=== PATIENT | female | born 1985 | race Caucasian/White ===

== ENCOUNTER 2024-03-22 23:30 | Observation (INO) | payer OTHER, SELFPAY ==
[2024-03-22 18:02] VITALS: BP 142/91
--- NOTE | 2024-03-22 18:57 | ED.GENMED ---
History of Present Illness
<Adam Torres Jr., PA-C - Last Filed: 03/24/24 12:15>
General
Chief Complaint: Headache
Source: patient
Exam Limitations: none
Time Seen by Provider: 03/22/24 18:22
Nursing documentation reviewed up to this point in time: agreed with
Travel History
Have you had any contact with someone who has COVID-19?: No
Do you have any symptoms of coronavirus? Fever > 100 degrees, chills, cough, shortness of breath, sore throat, loss of taste or smell, muscle aches, or headache?: No
History of Present Illness
History of Present Illness:
38-year-old female without chronic medical conditions presenting to the emergency department today with concerns of severe headache started yesterday seem to be abrupt and start within a few seconds yesterday while she was walking has had ongoing
headaches since took Motrin Tylenol earlier today without relief. Denies chronic headaches did have migraines with . A few days ago had some mild upper respiratory symptoms. Additionally she claims that she has had some ongoing abdominal
pain and had a CT scan at [facility] a few days ago that showed inguinal lymph nodes and hernia. Denies specific chest pain numbness weakness changes in vision. No recent trauma. Not on blood thinners.
Review of Systems
<Adam Torres Jr., PA-C - Last Filed: 03/24/24 12:15>
Review of Systems
Allergies reviewed?: Yes
All Other Systems: ROS reviewed and negative except as documented in HPI and ROS
Phy Exam
<Adam Torres Jr., PA-C - Last Filed: 03/24/24 12:15>
Physical Exam
Physical Exam:
GENERAL: Alert , in no apparent distress
EYE: pupils equal and reactive
NECK: Supple, no significant adenopathy.
ENT: o/p clr, mmm.
CARDIAC: Regular rate and rhythm .
LUNGS: Clear breath sounds bilaterally, no acute respiratory distress, no wheezes/rales/rhonchi
ABDOMEN: Soft, without focal tenderness, no r/g, no cvat
NEUROLOGICAL: Alert and oriented, no focal neuro deficits
SKIN: Warm and dry, skin intact. 5 out of 5 and 5 upper and lower extremity strength normal sensation with palpating bilaterally normal finger-nose intervention no pronator
MUSCULOSKELETAL: No edema, well perfused.
PSYCH: Normal and appropriate interaction.
Course
<Adam Torres Jr., PA-C - Last Filed: 03/24/24 12:15>
Orders/Labs/Results
Orders:
Orders
03/22/24 18:37
0.9% Sodium Chloride 1000 ml [Nss] 1,000 ml IV BOLUS
Diphenhydramine [Benadryl] 25 mg IV NOW STA
Metoclopramide [Reglan] 10 mg IV NOW STA
03/22/24 18:39
Electrocardiogram (*1) Stat
Reason for Study: Other
Other Reason for Exam: Headache
CT Head W/o Iv Contrast Urgent
Comment:
Reason For Exam: severe WONG
EKG- Treatment ONCE
03/22/24 18:45
Test Result ONCE
03/22/24 19:12
Complete Blood Count/With Diff Urgent
Comprehensive Metabolic Panel Urgent
Erythrocyte Sed Rate Urgent
HCG, Serum Qualitative Screen Urgent
Magnesium Urgent
Comment: ADD ON
Influenza A+B Rapid Molecular Urgent
MARISA Source: Nasal Swab
Specimen Description:
03/22/24 19:41
CT Head & Neck Angio W/wo IV Urgent
Reason For Exam: severe WONG
03/22/24 20:43
Dexamethasone Sod Phosphate [Decadron] 10 mg IV NOW STA
03/22/24 21:08
COVID-19 Antigen Urgent
Source: Nasal Swab
03/22/24 21:40
HYDROmorphone [Dilaudid] 1 mg IV NOW STA
03/22/24 23:00
Flush (0.9% Sodium Chloride) [Flush (Nss)] See Dose Instructions IV PER PROTOCOL
03/22/24 23:10
Ketorolac [Toradol] 30 mg IV NOW STA
03/22/24 23:11
Admit/Transfer Patient As Directed
Co-Sign Provider:
Level of Care: Observation services
Assign to:: Medical/Surgical
Physician / Group: Reji
Diagnosis: Intractable Headache
03/22/24 23:12
Code Status As Directed
Resuscitation Status: Full Code
03/22/24 23:16
Add On- LAB Urgent
Tests Added?: magnesium
Sumatriptan Succinate [Imitrex] 50 mg PO ONCE PRN
03/22/24 23:18
Caffeine Citrate [Caffeine Citrate Oral Solution] 100 mg PO NOW STA
Magnesium Sulfate 1 G/D5w [Magnesium Sulfate] 1 gm in 100 ml IV NOW
03/22/24 23:20
Oxygen Therapy [O2 Therapy] [RESP] Routine
Titrate/Wean O2 to maintain O2 sat greater than (%): 100
Special Instructions: Place on 2L NC for headache
03/23/24 00:28
0.9% Sodium Chloride 1000 ml [Nss] 1,000 ml IV 60 mls/hr
Acetaminophen [Tylenol] 650 mg PO Q4HPRN PRN
Ketorolac [Toradol] 30 mg IV Q8HPRN PRN
Ondansetron Injectable [Zofran] 4 mg IV Q6HPRN PRN
03/23/24 00:28
Activity As Directed
Activity Level: Out of Bed-Early Mobility
With Assistance
I&O [Intake/ Output] As Directed
Frequency: q12h
Pneumatic Compression Sleeves As Directed
Type: Knee high
Vital Signs As Directed
Frequency: Per unit guidelines
DX Deep Vein Thrombosis Video Routine
03/23/24 Breakfast
Regular
At Your Request: Full Participation
03/23/24 07:06
Complete Blood Count/No Diff IN AM
Comprehensive Metabolic Panel IN AM
Magnesium IN AM
Abnormal Lab Results
03/22/24
19:12
Absolute Monos (auto) 0.9 H 10^3/uL
(0.1-0.6)
Monocytes % 15.4 H %
(1.7-9.3)
ESR 25 H mm/hour
(0-20)
AST 39 H U/L
(14-36)
ALT 67 H U/L
(0-35)
03/22/24 19:12
03/22/24 19:12
Vital Signs
Initial and Last Documented VS:
Initial Vital Signs
Temp Pulse Resp BP Pulse Ox
98.7 F 83 18 142/91 100
03/22/24 18:02 03/22/24 18:02 03/22/24 18:02 03/22/24 18:02 03/22/24 18:02
Last Documented Vital Signs
Temp Pulse Resp BP Pulse Ox
97.9 F 61 18 110/63 97
03/23/24 15:00 03/23/24 15:00 03/23/24 15:00 03/23/24 15:00 03/23/24 15:00
<Maegan Rodriguez MD - Last Filed: 03/24/24 15:38>
Orders/Labs/Results
Orders:
Orders
03/22/24 18:37
0.9% Sodium Chloride 1000 ml [Nss] 1,000 ml IV BOLUS
Diphenhydramine [Benadryl] 25 mg IV NOW STA
Metoclopramide [Reglan] 10 mg IV NOW STA
03/22/24 18:39
Electrocardiogram (*1) Stat
Reason for Study: Other
Other Reason for Exam: Headache
CT Head W/o Iv Contrast Urgent
Comment:
Reason For Exam: severe WONG
EKG- Treatment ONCE
03/22/24 18:45
Test Result ONCE
03/22/24 19:12
Complete Blood Count/With Diff Urgent
Comprehensive Metabolic Panel Urgent
Erythrocyte Sed Rate Urgent
HCG, Serum Qualitative Screen Urgent
Magnesium Urgent
Comment: ADD ON
Influenza A+B Rapid Molecular Urgent
MARISA Source: Nasal Swab
Specimen Description:
03/22/24 19:41
CT Head & Neck Angio W/wo IV Urgent
Reason For Exam: severe WONG
03/22/24 20:43
Dexamethasone Sod Phosphate [Decadron] 10 mg IV NOW STA
03/22/24 21:08
COVID-19 Antigen Urgent
Source: Nasal Swab
03/22/24 21:40
HYDROmorphone [Dilaudid] 1 mg IV NOW STA
03/22/24 23:00
Flush (0.9% Sodium Chloride) [Flush (Nss)] See Dose Instructions IV PER PROTOCOL
03/22/24 23:10
Ketorolac [Toradol] 30 mg IV NOW STA
03/22/24 23:11
Admit/Transfer Patient As Directed
Co-Sign Provider:
Level of Care: Observation services
Assign to:: Medical/Surgical
Physician / Group: Targino
Diagnosis: Intractable Headache
03/22/24 23:12
Code Status As Directed
Resuscitation Status: Full Code
03/22/24 23:16
Add On- LAB Urgent
Tests Added?: magnesium
Sumatriptan Succinate [Imitrex] 50 mg PO ONCE PRN
03/22/24 23:18
Caffeine Citrate [Caffeine Citrate Oral Solution] 100 mg PO NOW STA
Magnesium Sulfate 1 G/D5w [Magnesium Sulfate] 1 gm in 100 ml IV NOW
03/22/24 23:20
Oxygen Therapy [O2 Therapy] [RESP] Routine
Titrate/Wean O2 to maintain O2 sat greater than (%): 100
Special Instructions: Place on 2L NC for headache
03/23/24 00:28
0.9% Sodium Chloride 1000 ml [Nss] 1,000 ml IV 60 mls/hr
Acetaminophen [Tylenol] 650 mg PO Q4HPRN PRN
Ketorolac [Toradol] 30 mg IV Q8HPRN PRN
Ondansetron Injectable [Zofran] 4 mg IV Q6HPRN PRN
03/23/24 00:28
Activity As Directed
Activity Level: Out of Bed-Early Mobility
With Assistance
I&O [Intake/ Output] As Directed
Frequency: q12h
Pneumatic Compression Sleeves As Directed
Type: Knee high
Vital Signs As Directed
Frequency: Per unit guidelines
DX Deep Vein Thrombosis Video Routine
03/23/24 Breakfast
Regular
At Your Request: Full Participation
03/23/24 07:06
Complete Blood Count/No Diff IN AM
Comprehensive Metabolic Panel IN AM
Magnesium IN AM
Abnormal Lab Results
03/22/24
19:12
Absolute Monos (auto) 0.9 H 10^3/uL
(0.1-0.6)
Monocytes % 15.4 H %
(1.7-9.3)
ESR 25 H mm/hour
(0-20)
AST 39 H U/L
(14-36)
ALT 67 H U/L
(0-35)
03/22/24 19:12
03/22/24 19:12
Vital Signs
Initial and Last Documented VS:
Initial Vital Signs
Temp Pulse Resp BP Pulse Ox
98.7 F 83 18 142/91 100
03/22/24 18:02 03/22/24 18:02 03/22/24 18:02 03/22/24 18:02 03/22/24 18:02
Last Documented Vital Signs
Temp Pulse Resp BP Pulse Ox
97.9 F 61 18 110/63 97
03/23/24 15:00 03/23/24 15:00 03/23/24 15:00 03/23/24 15:00 03/23/24 15:00
<Adam Torres Jr., PA-C - Last Filed: 03/24/24 12:15>
MDM/Problems Addressed
MDM/Problems Addressed:
38-year-old female presenting to the emergency department with concerns of headache that she claims is worse than typical headaches. No diagnosed chronic headache illnesses but did have some migraines with . Symptom started yesterday while
she was walking and seem to reach maximal intensity over a few seconds. No vomiting no numbness weakness normal neurologic evaluation here normal vital signs afebrile no neck stiffness no fever. Concerning her description of symptoms plan for CT
CT angiogram for further assessment.
CT without evidence of acute abnormalities labs unremarkable
Vital signs remaining stable. Patient was given Reglan and Benadryl but claims to have very minimal of symptoms. She was then reassessed no neurologic symptoms no neck stiffness appears very comfortable on exam clinically does seem to be very
unlikely to be meningitis due to no fever no meningismus neurologic evaluation additionally subarachnoid very unlikely due to normal neuroexam no neck stiffness and no progression in 24-hour span. Plan to give additional headache medication and
reassess. Care transition to attending physician pending additional treatment.
<Adam Torres Jr., PA-C - Last Filed: 03/24/24 12:15>
*Critical Care Note
Total Time (30-74mins, 75-104mins- exclusive of procedures): Not Applicable
ED Attending Note
<Adam Torres Jr., PA-C - Last Filed: 03/24/24 12:15>
-
Portions of this chart may have been created with voice recognition software.� Occasional wrong word or��sound alike� substitutions may have occurred due to the inherent limitations of voice recognition software.
<Maegan Rodriguez MD - Last Filed: 03/24/24 15:38>
ED Attending Note
Patient seen and examined by attending physician: Yes
I performed the substantive portion of visit, reviewed & personally made and approve the management plan that is documented in note by myself or SASHA.: Yes
ED Attending Note:
38-year-old female who states that on Saturday evening she had episodes of fevers, chills, body aches, and chest discomfort that would come and go. The symptoms essentially resolved over the last 48 hours but then yesterday around 5 PM while getting
ready to get into the car she noted a frontal headache that is now diffuse. She is that it was very intense upon presentation, becoming maximal in about an hour. She rates it as a 9 out of 10 and states that it has been at this level since
yesterday. She did not come in before now because she thought it would go away. She took Tylenol Motrin at home without relief of symptoms. Sometimes pain will radiate to her neck, but nods her head yes and no easily, no photophobia or vomiting,
no change in vision. She notes that her children have had recent URI/flulike symptoms. Patient denies cough or shortness of breath. On exam, patient overall extremely well-appearing, no photophobia, neurologically intact, nods yes and no easily,
TMs clear bilaterally, oropharynx clear. nontoxic. Patient does not exhibit signs or symptoms to suggest encephalitis/meningitis. Highly doubt SAH given symptoms for at least 24 hours without meningismus/neurofindings and unremarkable CT CTA.
Remains neurologically stable here. Will continue to follow closely while helping to relieve her pain.
1044pm multiple reassessments. She began to report worsening pain, given dilaudid, pain now 7/10. No new sxs. Still no nuchal rigidity noted, generally nontoxic, no photophobia, etc. at bedside. Recommend admission, continued pain
management, observation, may need further nonemergent imaging (ex MR) in AM. Stephan text to hospitalist.
Discharge Plan
Departure
Patient Disposition: Admit
Date of Disposition: 03/22/24
Time of Disposition: 22:45
Presentation/result/management discussed w/ accepting MD/DO: Hospitalist
Condition: Fair
Discharge Problem:
Headache
Interventions
Interventions:
*Risk Screen - Suicide Last Done: 03/22/24 19:11
*General Assessment Last Done: 03/22/24 18:02
*Neglect/Abuse Screening Last Done: 03/22/24 19:11
ED- Fall Risk Assessment Last Done: 03/22/24 19:11
*ED COVID-19 Vaccine History Last Done: 03/23/24 01:03
*Nursing Disposition Last Done: 03/23/24 00:20
ED- Neurological Assessment Last Done: 03/22/24 19:11
Discharge Date and Time
Discharge Date/Time: 03/23/24 00:20
[2024-03-22] MEDS: BENADRYL 25 MG IV (19:12)
[2024-03-22] MEDS: REGLAN 10 MG IV (19:13)
[2024-03-22] MEDS: NSS 1000 IV (19:13)
[2024-03-22 19:23] LABS: % Basophils 0.7 % (0-2); % Eosinophils 1.6 % (0-6); % Immature Granulocytes 0.2 % (0-0.5); % Lymphocytes 26.3 % (20.5-51.1); % Monocytes 15.4 % (1.7-9.3); % Neutrophils 55.8 % (42.2-75.2); Absolute Eosinophils 0.1 10^3/uL (0-0.7); Absolute Lymphocytes 1.5 10^3/uL (1.2-3.4); Absolute Monocytes 0.9 10^3/uL (0.1-0.6); Absolute Neutrophils 3.1 10^3/uL (1.4-6.5); Hematocrit 38.1 % (37.0-47.0); Hemoglobin 12.6 g/dL (12.0-16.0); Mean Corp Hgb Conc. 33.1 g/dL (33.0-37.0); Mean Corpuscular Hgb 28.1 pg (27.0-31.0); Mean Corpuscular Volume 84.9 fL (81.0-99.0); Mean Platelet Volume 10.4 fL (7.4-10.4); Nucleated Red Blood Cells % 0 %; Platelet Count 272 10^3/uL (130-400); Red Blood Cell Count 4.49 10^6/uL (4.20-5.40); Red Cell Dist. Width 12.9 % (11.5-14.5); White Blood Cell Count 5.6 10^3/uL (4.8-10.8)
[2024-03-22 19:31] LABS: Erythrocyte Sed Rate 25 mm/hour (0-20)
[2024-03-22 19:34] LABS: HCG, Serum Qualitative Screen Negative
[2024-03-22 19:39] LABS: ALT (SGPT) 67 U/L (0-35); AST (SGOT) 39 U/L (14-36); Albumin 4.5 g/dl (3.5-5.0); Alkaline Phosphatase 61 U/L (38-126); Blood Urea Nitrogen 8 mg/dl (7-17); Calcium 9.7 mg/dl (8.4-10.2); Carbon Dioxide 27 mmol/L (22-30); Chloride 104 mmol/L (98-107); Glucose 90 mg/dl (70-99); Potassium 4.1 mmol/L (3.5-5.1); Sodium 139 mmol/L (135-145); Total Bilirubin 0.4 mg/dl (0.2-1.3); Total Protein 7.8 g/dl (6.3-8.2); eGFR > 60.00
[2024-03-22] MEDS: DECADRON 10 MG IV (21:06)
[2024-03-22 21:31] LABS: COVID-19 Antigen Negative (Negative)
[2024-03-22] MEDS: DILAUDID 1 MG IV (22:00)
--- NOTE | 2024-03-22 22:52 | HPS.HSE ---
Family Physician
-
Family Physician: Burton Diallo
Chief Complaint
-
Headache
History of Present Illness
This is a 38 year old female with no significant past medical history who presents today for acute onset headache x 1 day. She describes the pain as throbbing with episodes of sharp pain that radiates into her neck. She states at onset the pain was
910 and has been constant. She tried taking multiple doses of Tylenol throughout the day, and took 1 dose of 400 mg Ibuprofen at 8 am this morning without any relief. She has associated nausea but denies vomiting. She also admits to phonophobia and
muffled hearing in her right ear. She denies fever, changes in vision, photophobia, ear pain, abdominal pain, chest pain or palpitations. She denies any recent travel. She states one of her children is currently sick with sinusitis and her other
child has a sore throat, but denies any other sick contacts. She reports prior history of migraine with aura while but no migraine headaches since giving .
Medical History
Past Medical History
Past Medical History: Reports Other
Additional Past Medical History:
de Quervain's tenosynovitis
Past Surgical History: Reports Other
Additional Past Surgical History:
Left Shoulder Arthroscopy with Rotator Cuff Repair
Social History
Tobacco: Non-smoker
Alcohol: Occasional
Family History
Family History: Not pertinent
Allergies / Home Medications
Allergies reflects when Allergies were last updated in [employer].
Home Medications with original date entered in [employer]
Allergy/Medication List:
Medications on admission are unable to be verified or confirmed at this time.
Review of Systems
-
A 12 point ROS was completed and negative except as noted: Yes
Constitutional: Denies Fever
Respiratory: Denies Cough or Trouble Breathing
Cardiac: Denies Chest Pain or Palpitations
Neurological: Reports See HPI
Physical Exam
Vital Signs
Vital Signs
Temp Pulse Resp BP Pulse Ox
98.7 F 83 18 142/91 100
03/22/24 18:02 03/22/24 18:02 03/22/24 18:02 03/22/24 18:02 03/22/24 18:02
Physical Exam
General: Comfortable and Conversant
HEENT: Anicteric and Moist mucous membranes
Respiratory: Clear and Non Labored Respirations
Cardiac: S1/S2 and Regular Rhythm
GI: Soft and Non Tender
Rectal: Deferred by Provider
Musculoskeletal: No Clubbing, No Cyanosis and No Edema
Skin: Warm and Dry
Neuro: Awake, Alert, Oriented and Nonfocal/grossly intact
Psych: Calm
Laboratory Results
-
03/22/24 19:12
03/22/24 19:12
Laboratory Results
Total Bilirubin 0.4 mg/dl (0.2-1.3) 03/22/24 19:12
AST 39 U/L (14-36) H 03/22/24 19:12
ALT 67 U/L (0-35) H 03/22/24 19:12
Alkaline Phosphatase 61 U/L (38-126) 03/22/24 19:12
Data Reviewed
-
CT Scan: Report Reviewed by me
Lab Data: Labs Reviewed by me
Impression/Plan
-
Intractable Headache
-Give dose of Toradol, Magnesium and Caffeine Now
-If no improvement give dose of Imitrex later tonight
-Consider Neurology consult in AM if headache persists
DVT Proph: SCDs
Code Status: Full Code
--- NOTE | 2024-03-22 23:09 | W.PN.UPDATE ---
Update Note
Progress Note Update
Attending addendum.
Patient seen, examined, and interviewed independently.
38-year-old woman without chronic medical conditions presents with severe headache.Headache started yesterday with abrupt start. Motrin and Tylenol gave no relief. She Denies chronic headaches, but did have migraines with . She Denies
specific chest pain numbness weakness changes in vision. No recent trauma. Not on blood thinners. At worse it was 07/21. now 05/20. +photophobia and phonophobia.
Exam: Neuro grossly intact
aox3
[id number], no MRG
Lungs clear
abd soft, NT, ND
Brain CT shows No significant vascular occlusion, aneurysm or dissection.
A/P: intractable h/a, with migrainous features.
Try toradol
If that does not fix it, try imitrex
If that does not work, neuro consult.
Please see PA note for full details.
[2024-03-22] MEDS: MAGNESIUM SULFATE 100 IV (23:34)
[2024-03-22] MEDS: TORADOL 30 MG IV (23:35)
[2024-03-22 23:44] VITALS: BMI 28.1
[2024-03-23 00:36] VITALS: BP 114/67; BMI 18.4
[2024-03-23] MEDS: NSS 1000 IV (00:56)
[2024-03-23] MEDS: CAFFEINE CITRATE ORAL SOLUTION PO (00:56)
[2024-03-23] MEDS: IMITREX 50 MG PO (01:01)
[2024-03-23] MEDS: CAFFEINE CITRATE ORAL SOLUTION 100 MG PO (02:19)
[2024-03-23] MEDS: TORADOL 30 MG IV ×2 (03:24→11:50)
[2024-03-23] MEDS: TYLENOL 650 MG PO ×2 (04:46→09:35)
[2024-03-23 07:00] VITALS: BP 107/67
--- NOTE | 2024-03-23 07:37 | PTCARENOTE ---
Pt admitted to unit from ED. Pt pulled over into bed due to reporting 'lightheadedness' with ambulation. Pt reports 8/10 pain. Educated pt on plan of care. Pt requested 'pill pain medication' for pain 'doctor told me I would receive if the shot
didn't work.' Pain medication administered. Pt oriented to room with call hernandez in reach. Bedside commode at bedside. Plan of care ongoing.
[2024-03-23 08:00] LABS: Hematocrit 37.6 % (37.0-47.0); Hemoglobin 12.4 g/dL (12.0-16.0); Mean Corpuscular Volume 84.9 fL (81.0-99.0); Platelet Count 287 10^3/uL (130-400); Red Blood Cell Count 4.43 10^6/uL (4.20-5.40); Red Cell Dist. Width 12.8 % (11.5-14.5); White Blood Cell Count 5.1 10^3/uL (4.8-10.8)
[2024-03-23 08:24] LABS: ALT (SGPT) 48 U/L (0-35); AST (SGOT) 29 U/L (14-36); Albumin 4.3 g/dl (3.5-5.0); Alkaline Phosphatase 53 U/L (38-126); Blood Urea Nitrogen 6 mg/dl (7-17); Calcium 9.6 mg/dl (8.4-10.2); Carbon Dioxide 21 mmol/L (22-30); Chloride 108 mmol/L (98-107); Estimated Creatinine Clearance > 125 ml/min; Glucose 146 mg/dl (70-99); Magnesium 2.3 mg/dl (1.6-2.3); Potassium 4.6 mmol/L (3.5-5.1); Sodium 140 mmol/L (135-145); Total Bilirubin 0.5 mg/dl (0.2-1.3); Total Protein 7.5 g/dl (6.3-8.2); eGFR > 60.00
--- NOTE | 2024-03-23 09:30 | PTCARENOTE ---
Patient continues to c/o headache 04/20. Tylenol given. Patient states, 'For the last hour I have had numbness and tingling in both of my armsfrom my fingers to my elbows.' Physician made aware.
--- NOTE | 2024-03-23 10:41 | W.PN.HOSP.TC ---
Addendum entered and electronically signed by Chau Vela MD 03/23/24 15:00:
Total time spent on d/c = 31 min. This included today's physical exam, progress note, review of laboratory and diagnostic data, preparation of discharge documents and prescriptions, and discussions about the pt's hospital course and discharge plan
with the patient and other medical or surgical instrument maker involved in the patient's care.
Original Note:
Today's Communication/Plan
-
see bold
Assessment / Plan
Assessment / Plan
Pt seen and examined while SHAYY Rueda present at bedside:
Gen: NAD, AAOx3.
Eyes: EOMI, PERRLA, no scleral icterus.
Neck: supple.
CV: RRR, +S1/S2, no m/r/g.
Resp: CTAB, no rales, wheezes, or rhonchi.
Abd: +BS, soft, NT, ND
Skin: No rashes.
Neuro: CN 2-12 intact, non-focal.
Psych: Normal mood and affect.
CTA head/neck: No significant vascular occlusion, aneurysm or dissection.
CT brain: No acute intracranial abnormality noted.
Intractable headache:
-s/p Decadron 10mg IV, dilaudid, Toradol, Tylenol, Mg, caffeine, Imitrex, IVFs
-appreciate neurology. Will give Imitrex/compazine/Toradol now.
FULL
Anticipated Discharge: Within 24 hours
Subjective/Interval History
-
Date of Service: March 23, 2024
Still with headache and tingling in both arms from elbows distally.
Objective Data
-
Labs:
Laboratory Results
03/23/24
07:06
WBC 5.1
Hgb 12.4
Hct 37.6
Plt Count 287
Sodium 140
Potassium 4.6
Chloride 108 H
Carbon Dioxide 21 L
BUN 6 L
Creatinine 0.5 L
Glucose 146 H
Calcium 9.6
Total Bilirubin 0.5
AST 29
ALT 48 H
Alkaline Phosphatase 53
Vital Signs:
Vital Signs
Temp Pulse Resp BP Pulse Ox
97.9 F 71 14 107/67 98
03/23/24 07:00 03/23/24 07:00 03/23/24 07:00 03/23/24 07:00 03/23/24 07:00
--- NOTE | 2024-03-23 10:42 | CON.NEURO4 ---
Addendum entered and electronically signed by Fred Nicole MD 03/23/24 15:46:
I saw and evaluate the patient I reviewed the note by Suri Bennett agree to find the following comments:
38-year-old woman with a past medical history of migraines during presented to hospital with significant headache and mild photophobia after having sick contacts with her children and mild sore throat a couple days ago. She is also had
some hand paresthesia bilateral. No rashes or fevers no vomiting, no unilateral weakness or speech difficulty slurred speech or vision changes.
Neurologic examination is benign, no abnormalities
CTA of the head and neck no significant abnormalities no dissection or occlusions or aneurysm
Assessment: Migraine headache with some sensory aura with paresthesias in the hands bilaterally probably occurring due to recent URI and sick contact, no red flags and normal neurologic examination is reassuring.
Recommendations
-Reassured patient things look like they will improve and that she has normal neurologic exam with reassuring CTA
-Give 1 dose sumatriptan along with p.o. prochlorperazine 10 mg and 1 dose IV Toradol
-No indication for further imaging or hospital monitoring I encouraged rest at home I think things will get better over the course of a couple of days
Original Note:
Consultation - Neurology 4
-
CONSULTING PHYSICIAN: Regine Nicole MD
REFERRING PHYSICIAN: Hospitalists/Dr. Vela
DICTATED BY: TIFFANIE Hutton
DATE/TIME OF REQUEST: 03/23/24
DATE/TIME OF CONSULTATION: 03/23/24
Reason for Consultation: Intractable headache
History of Present Illness:
This is a 38-year-old left-handed female who has presented to the hospital on 03/22/24 with report of severe headache. Patient reports that her two young children have had viral illnesses in the past couple of weeks. Six days ago on 03/17/24 she
reports developing body aches and a sore throat. Three days later on 03/20/24 she developed chills. Two days ago on 03/21/24 she reports having mild chest aching with no associated cough, and then around 1700 she suddenly developed an 8/10 fontal
headache. Her headache progressed to a 10/10 yesterday (03/22/24) and was not improving with OTC Tylenol and Advil, prompting her to come to the ER for evaluation. CT head and CTA head/neck were obtained on arrival and are negative for any acute
abnormalities. Today (03/23/24), her headache is a 5/10. She denies photophobia but reports phonophobia and intermittent nausea, no vomiting. The headache starts across her entire forehead, and then she reports shooting pain across bitemporal areas,
down the back of her head, and down her neck. She reports eye strain left>right with looking side to side. Her head hurts more when she bends foreword but otherwise seems unaffected by position change. She reports associated tingling in bilateral
forearms from her elbows throughout all of her fingers, this started around 0400 this morning. She denies any vision changes, dizziness, speech/swallow difficulty, weakness, chest pain, palpitations, and shortness of breath.
She reports a history of migraine with aura during both of her pregnancies in 2021 and 2022. She would see a bright blob in one of her eyes and then later develop a headache. Her previous migraines have been less severe and shorter lasting. Her
last migraine was about one year ago. She denies drinking any caffeine. She reports sleeping well until she was hospitalized. She has a history of concussion from a snowboarding accident in 2015. She also reports having vertigo in Fall 2022 and she
started to see a chiropractor at that time. Her vertigo resolved. She still goes to the chiropractor every 2-3 weeks and has neck manipulation. She also had left shoulder surgery in September 2023 and developed Covid in the weeks following surgery.
She travels significantly for work and flew several times for a work trip in October 2023. She started having left calf pain and was found to have a DVT. She recently completed 5 months of Eliquis 5mg BID and aspirin 81mg daily in mid-February 2024.
Her last flight was one month ago. She reports having chronic lower back pain and RLE sciatica from a herniated disc and she gets acupuncture for this. She had the Flu in January 2024 and completed a Medrol dose pack about 1.5 weeks ago. Additionally,
she has been having abdominal discomfort and recently had a CT abdomen that demonstrated an umbilical hernia, enlarged mesenteric lymph nodes, and a lucent L3 vertebral body lesion. She is scheduled to have an outpatient MRI lumbar spine for
follow-up. She started using Qbrexza wipes one month ago for hyperhidrosis, initially they caused her to have dry eyes and lethargy but this resolved weeks ago. She is not using control. She started her menses today (03/23/24).
Past Medical History: Migraine with aura, umbilical hernia, R calf DVT 10/2023, miscarriage x1 at 7-8 weeks gestation, Covid 09/2023
Surgical History: Left shoulder arthroscopy with subacromial decompression/acromioplasty/RTC repair, nasal polypectomy
Family History: Reviewed and noncontributory.
Social History: One glass of wine every other day. Denies tobacco and illicit drug use. Denies caffeine.
Allergies: No known allergies.
Home Medications: See below.
Review of Symptoms:
Patient denies any fever, chest pain, shortness of breath, GI or symptoms.
�Per the HPI.�All systems are reviewed negative except above.
Physical Exam:
The patient is afebrile, abdomen is nondistended, breathing is unlabored, skin is warm and dry, no edema.
Neurologic Examination:
The patient is awake, alert and oriented x 3. She is able to follow commands and answer questions appropriately. There is no aphasia or dysarthria. On cranial nerve assessment, pupils are 3 mm bilateral, round and reactive to light and
accommodation. Visual tracey are full. Extraocular movements are intact. Facial sensations are intact and bilaterally symmetrical, there is no facial asymmetry. Hearing is intact bilaterally to normal conversation volume. Tongue palate and uvula are
midline. Sternocleidomastoid strengths are full bilaterally. Motor strengths are 5/5 bilateral upper and lower extremities on medical research [place] scale. There is no drift or involuntary movement noted. Deep tendon reflexes are 2+ bilateral
upper and lower extremities and Babinski is absent bilaterally. Sensations of touch, temperature and vibration are intact and bilaterally symmetrical. There was no extinction noted on double simultaneous stimulation. Coordination is intact by finger
to nose bilaterally.
Lab Results: See below.
Neuro Imaging:
1. CT Head 03/22/24: No acute intracranial abnormality noted.
2. CTA head/neck 03/22/24: No significant vascular occlusion, aneurysm or dissection.
Differentials for the patient's presentation include:
1. Intractable migraine with aura likely producing headache and bilateral upper extremity paresthesias.
2. Low concern for acute intracranial abnormality producing headache.
3. CTA negative for dissection and aneurysm.
Patient has the following risk factors for their symptoms: Hx migraine with aura, started menses today, recent virus, recent DVT
Recommendations:
-Provide sumatriptan 100mg PO x1 now for headache, may repeat dose again in 2 hours if needed.
-Provide prochlorperazine 10mg PO x1 now for headache.
-Provide Toradol 30mg IV x1 now for headache.
-Do not see a role for further neurological imaging at this time but will obtain eventual MRI brain w/ and w/o contrast as an outpatient to establish baseline.
-Sleep and hydration encouraged.
-Patient should follow-up with Neurology as an outpatient in about 4 weeks, may see the [employer]CHNICIAN or one of the physicians.
Discussed patient care with: Dr. Nicole, the patient
Vital Signs and Labs
-
Vital Signs and Labs:
Vital Signs
Temp Pulse Resp BP Pulse Ox
97.9 F 71 14 107/67 98
03/23/24 07:00 03/23/24 07:00 03/23/24 07:00 03/23/24 07:00 03/23/24 07:00
Lab Results
03/23/24 07:06
03/23/24 07:06
Sodium 140 mmol/L (135-145) 03/23/24 07:06
Potassium 4.6 mmol/L (3.5-5.1) 03/23/24 07:06
BUN 6 mg/dl (7-17) L 03/23/24 07:06
Glucose 146 mg/dl (70-99) H 03/23/24 07:06
Calcium 9.6 mg/dl (8.4-10.2) 03/23/24 07:06
Medications
-
Active Medications
Generic Name Dose Route Start Last Admin
Trade Name Freq PRN Reason Stop Dose Admin
Acetaminophen 650 mg 03/23/24 00:28 03/23/24 09:35
Acetaminophen 325 Mg Tablet PO 04/20/24 00:27 650 mg
Q4HPRN PRN Administration
mild pain/ fever>100.5F
Ketorolac Tromethamine 30 mg 03/23/24 00:28 03/23/24 11:50
Ketorolac 30 Mg/Ml Injection IV 03/28/24 00:27 30 mg
Q8HPRN PRN Administration
headache
Ondansetron HCl 4 mg 03/23/24 00:28
Ondansetron 4 Mg/2 Ml Vial IV 04/20/24 00:27
Q6HPRN PRN
NAUSEA/VOMITING
Sodium Chloride 0 flush 03/22/24 23:00
Sodium Chloride 0.9% (Flush) Syringe IV 04/19/24 22:59
PER PROTOCOL FRANCA
Sumatriptan Succinate 50 mg 03/22/24 23:16 03/23/24 01:01
Sumatriptan (Imitrex) 50 Mg Tablet PO 04/19/24 23:15 50 mg
ONCE PRN Administration
persistent headache
Home Medications
�Medication �Instructions �Recorded
Vitamin Tablet 1 tab PO DAILY Supplement 03/12/22
omega-3 fatty acids 1 cap PO BID 09/06/23
B12, B6& Folic Acid 1,000 mcg PO DAILY 09/11/23
Tumeric Curcumin 2,250 mg PO BID 09/11/23
acetaminophen 325 mg capsule 650 mg PO PRN PRN pain 09/11/23
(Tylenol)
amoxicillin 875 mg tablet 875 mg PO BID 09/11/23
eszopiclone 3 mg tablet 3 mg PO DAILY PRN sleep 09/11/23
ibuprofen 200 mg tablet (Advil) 400 mg PO PRN PRN pain 09/11/23
ondansetron 4 mg PO DAILY PRN nausea 09/11/23
Claritin 10 mg PO HS seasonal allergies 03/23/24
Vitamin C 1,000 mg PO DAILY 03/23/24
Zyrtec 10 mg PO DAILY seasonal allergies 03/23/24
[2024-03-23] MEDS: IMITREX 100 MG PO ×2 (12:19→15:24)
[2024-03-23] MEDS: COMPAZINE 10 MG PO (12:19)
--- NOTE | 2024-03-23 12:47 | CM ---
Patient seen bedside with Hospitalist, initial assessment completed. Patient resides with spouse and two children in a multiple story home. Patient denies DME, VN, or SNF. Patient confirms PCP Burton Diallo, pharmacy [facility], confirms
prescription coverage. Patient denies food insecurities at home. OBS form reviewed, signed, placed in chart. CM will continue to follow for discharge planning needs.
Plan; home no needs likely.
[2024-03-23 15:00] VITALS: BP 110/63
--- NOTE | 2024-03-23 15:00 | W.DCSUMMARY ---
Discharge Summary
Discharge Data
Date of Admission: 03/22/24
Date of Discharge: 03/23/24
-
Pending Results: No
Hospital Course
Primary diagnoses:
Migraine headache
Secondary diagnoses:
None
Consultants:
Neurology
Imaging:
CTA head/neck: No significant vascular occlusion, aneurysm or dissection.
CT brain: No acute intracranial abnormality noted.
Hospital course: 38-year-old female presented yesterday with chief complaint of a headache. The patient was admitted for intractable headache. She initially received Decadron 10mg IV, dilaudid, Toradol, Tylenol, Mg, caffeine, Imitrex, and IVFs.
She was seen in consultation by neurology and given Imitrex, compazine and Toradol. The patient had improvement in her symptoms and was discharged in medically stable condition.
Discharge Plan
-
Patient Disposition: Home (Routine Discharge)
Discharge Diagnosis/Procedures: Migraine headache
Condition: Good
Diet: No restrictions
Activity: No restrictions
Driving Restrictions: As prior to admission
Bathing Restrictions: None
Referrals:
Burton Diallo DO [Family Provider] - in less than 1 week
Prescriptions:
Continued
Vitamin Tablet
1 tab PO DAILY
omega-3 fatty acids Capsule
1 cap PO BID
B12, B6& Folic Acid
1,000 mcg PO DAILY
ondansetron
4 mg PO DAILY PRN (Reason: nausea)
acetaminophen [Tylenol] 325 mg Capsule
650 mg PO PRN PRN (Reason: pain)
ibuprofen [Advil] 200 mg Tablet
400 mg PO PRN PRN (Reason: pain)
eszopiclone 3 mg Tablet
3 mg PO DAILY PRN (Reason: sleep)
Claritin 10 mg tablet
10 mg PO HS
Zyrtec 10 mg tablet
10 mg PO DAILY
Vitamin C 1,000 mg capsule
1,000 mg PO DAILY
Discontinued
amoxicillin 875 mg Tablet
875 mg PO BID
Tumeric Curcumin
2,250 mg PO BID
Patient Comments:
Pt states 'I take one in the morning and two at night usually.'
Discharge Orders:
Discharge Patient (As Directed); Ordered 03/23/24
Ordered By: Chau Vela
Discharge Date and Time
Print Language: TURKMEN
--- NOTE | 2024-03-23 16:10 | PTCARENOTE ---
Patient requesting to go home. Patient states, 'I feel better. I want another dose of Imitrex and then go home.' Physician made aware. Imitrex given.
--- NOTE | 2024-03-23 16:20 | PTCARENOTE ---
Patient c/o left eye redness and drainage. Upper eye lid slightly reddened, no drainage noted. Physician made aware. Physician requests patient follow up with PCP as patient is discharged.
== END 2024-03-23 17:07 | disposition home or self-care (01) ==
LOC: 4 WEST ACU 23:30
PROVIDERS: Physician Assistant; Physician Assistant Medical; ADMITTING PHYSICIAN Internal Medicine; ATTENDING PHYSICIAN Internal Medicine; CONSULT PHYSICIAN Student in an Organized Health Care Education/Training Program; EMERGENCY PHYSICIAN Emergency Medicine; FAMILY PHYSICIAN Family Medicine
DX: G43.109 Migraine with aura, not intractable, without status migrainosus (principal); R07.89 Other chest pain; R50.9 Fever, unspecified; M54.2 Cervicalgia; R20.2 Paresthesia of skin; G89.29 Other chronic pain; K42.9 Umbilical hernia without obstruction or gangrene; R59.0 Localized enlarged lymph nodes; M51.17 Intervertebral disc disorders with radiculopathy, lumbosacral region; Z11.52 Encounter for screening for COVID-19; Z86.718 Personal history of other venous thrombosis and embolism
CPT/HCPCS: 70450; 70496; 70498; 80053; 83735; 84703; 85025; 85027; 85652; 87502; 87811; 93005; 96361; 96374; 96375; 99285; G0378; Q9967